=== PATIENT | female | born 1945 | race Caucasian/White ===

== ENCOUNTER 2016-07-13 10:34 | Inpatient (IN) ==
[2016-07-13] MEDS ORDERED: ONDANSETRON 4 MG/2 ML INJECTION IVP ONE (10:57)
[2016-07-13] MEDS ORDERED: NS 1,000 ML IV ONE (10:57)
[2016-07-13] MEDS ORDERED: HYDROMORPHONE 2 MG/ML INJECTION IVP ONE ×2 (10:57→12:03)
[2016-07-13] MEDS: SALINE FLUSH 10ml SYRINGE IVF PRN ×2 (11:16→16:08)
--- NOTE | 2016-07-13 11:54 | CT Scan Report ---
Indication: right flank pain PROCEDURE: CT renal wo con: Encounter: Initial Comparison: None Technique: Axial CT images were performed through the abdomen and pelvis without intravenous contrast. Coronal and sagittal two-dimensional reformats. Automated Exposure Control and Iterative Reconstruction dose reducing techniques were utilized. Findings: The lung bases are clear. The unenhanced contours of the liver show decreased attenuation consistent with fatty infiltration. No contour deforming liver masses. The gallbladder is unremarkable. The spleen, pancreas and adrenal glands are within normal limits. 1 cm higher attenuation lesion in the medial inferior aspect of the right kidney probably representing a small hyperdense cyst. The kidneys appear otherwise normal without evidence of hydronephrosis or stone disease. Small hiatal hernia. There is a small amount of free pelvic fluid. Uterus is unremarkable. No evidence of a bowel obstruction. There is significant inflammation surrounding the appendix which contains an appendicolith at its base. Diameter is difficult to measure given the significant adjacent fat stranding. There is some fluid along the right lateral conal fascia as well. There is no free intraperitoneal air identified. Bone windows show degenerative changes in the spine. Impression: 1. Acute appendicitis with evidence of perforation. Emergent surgical consultation is recommended. 2. Hepatic steatosis. These results were discussed with the emergency room physician Dr. Giraldo at 1148 on July 13, 2016. .
--- NOTE | 2016-07-13 11:56 | XRay Report ---
INDICATION: abdominal pain PROCEDURE: CHEST 2-VIEWS UPRIGHT (PA & LAT) Encounter: Initial COMPARISON: None FINDINGS: The lungs are clear without evidence of focal abnormal airspace opacity. There is no pleural effusion or pneumothorax. The heart size, mediastinal contours and pulmonary vascularity are within normal limits. Degenerative change in the thoracolumbar spine. IMPRESSION: No acute cardiopulmonary disease. .
--- NOTE | 2016-07-13 11:56 | Emergency Department Report ---
Abdominal Pain HPI - General Chief Complaint: Abdominal Pain Stated Complaint: R Flank Pain Time Seen by Provider: 07/13/16 10:57 - History of Present Illness HPI narrative: 70-year-old female presents with abdominal pain which onset this morning. She was doing well yesterday, began a little bit of pain overnight and pain became very severe this morning. At this point when she moves it is 10 out of 10. She did not have any pain with bumps on the way in, or when lying perfectly still. No fever or chills. No abdominal injury or trauma. No one else at home is sick. Pain is right lower quadrant radiating down into pelvis. She was initially seen her primary care provider's office and sent to ED with severe abdominal pain. - Related Data Home Medications Medication Instructions Recorded Confirmed Alendronate [Fosamax] 70 mg PO WEEKLY #0 06/04/09 Aspirin [Aspirin EC] 1 tab PO DAILY #0 06/04/09 Atenolol 1 tab PO BID #0 06/04/09 Lisinopril 5 mg PO HS #0 06/04/09 XYLOTRAN EYE DROPS DAILY #0 06/04/09 hydroCHLOROthiazide 25 mg PO HS #0 06/04/09 [Hydrochlorothiazide] Allergies Allergy/AdvReac Type Severity Reaction Status Date / Time No Known Drug Allergies Allergy Unknown Verified 07/13/16 11:15 Review of Systems All systems: reviewed and negative except as stated Gastrointestinal: Reports: as per HPI PFSH Patient Stated Medical History Hypertension Yes Surgical History: neg Family History: Negative and still negative Smoking status: Never smoker Substance use type: does not use Physical Exam - General General appearance: alert, anxious, in distress - Normal Exams: Head:: Normocephalic without trauma Eyes:: Pupils are PERRLA w/ EOMI, No scleral icterus, irritation, or foreign bodies noted ENMT:: No facial trauma, nasal exudates, pharyngeal erythema, or exudates are noted Chest/Respirations:: Clear all jerez, with good airflow, and symmetry bilaterally Cardiovascular:: Regular rate and rhythm, without murmur or gallop, Pulses 2+ all extremities, capillary refill, <2 seconds all extremities Musculoskeletal:: No tenderness, or deformity noted Integumentary:: No rashes, hives, or bruising noted, hair and nails, without abnormality Neurological:: Patient is alert, and oriented, cranial nerves, motor/sensory/ cerebellar, exams w/o gross deficits, to observation Psychiatric:: Patient exhibits, appropriate attention, emotion and affect - Abdominal Exam Abdominal exam: Present: distention, tenderness, guarding Course Vital Signs Temperature 102.8 F H 07/13/16 10:40 Pulse Rate 84 07/13/16 10:40 Respiratory Rate 28 H 07/13/16 10:40 Blood Pressure 140/67 H 07/13/16 10:40 Pulse Oximetry 93 07/13/16 10:40 Temperature 102.8 F H 07/13/16 10:40 Pulse Rate 66 07/13/16 11:15 Respiratory Rate 28 H 07/13/16 10:40 Blood Pressure 102/55 07/13/16 11:23 Pulse Oximetry 95 07/13/16 11:15 Abdominal Pain - MDM Narrative Medical decision making narrative: Patient given normal saline 1 L IV with 0.5 mg Dilaudid and 4 mg Zofran IV. She had some relief of pain. Temp is elevated at 102.8 labs returned showing normal white count at this time however however CRP is elevated at 90. Lactate 2.0. CT scan shows likely perfect appendix with fluid layering in the pelvis. I spoke with Dr. Macias, who accepted the patient for surgical intervention. She will be given Invanz 1 g IV, 0.5 mg Dilaudid currently. - Lab Data Result diagrams: 07/13/16 11:13 07/13/16 11:13 Lab Results 07/13/16 07/13/16 07/13/16 Range/Units 10:58 11:13 11:13 WBC 8.0 (4.5-11.0) T/MM3 RBC 4.08 (4.00-5.20) M/MM3 Hgb 12.5 (12-16) GM/DL Hct 37.9 (36-46) % MCV 92.9 (80-100) UM3 MCH 30.6 (26-34) UUG MCHC 33.0 (31-37) GM/DL RDW Std Deviation 42.8 (36.9-50.2) FL Plt Count 273 (130-400) T/MM3 MPV 10.2 (9.4-12.4) UM3 Immature Gran % (Auto) Not performed Neut % (Auto) Not performed Lymph % (Auto) Not performed [place] % (Auto) Not performed Eos % (Auto) Not performed Baso % (Auto) Not performed Neut # Not performed Lymph # Not performed [place] # Not performed Baso # Not performed Abs Immat Gran (auto) Not performed Neutrophils % (Manual) 79.0 H (33-66) % Band Neutrophils % 11.0 H (0-6) % Lymphocytes % (Manual) 7.0 L (23-45) % Monocytes % (Manual) 3.0 (0-9.0) % Neutrophils # (Manual) 6.3 (1.8-7.7) T/MM3 Band Neutrophils # 0.9 T/MM3 Lymphocytes # (Manual) 0.6 L (1-4.8) T/MM3 Monocytes # (Manual) 0.2 (0-0.8) T/MM3 RBC Morph Comment Normal Turbidity 20 (0-20) Sodium 137 (134-144) MEQ/L Potassium 4.4 (3.6-5) MEQ/L Chloride 99 (98-107) MEQ/L Carbon Dioxide 25 (22-30) MEQ/L Anion Gap 13 (5-15) MEQ/L BUN 22.0 H (7-17) MG/DL Creatinine 1.1 (0.7-1.2) MG/DL GFR Calculation 49 BUN/Creatinine Ratio 20 (6-26) RATIO Glucose 284 H (65-110) MG/DL Calculated Osmolality 277 (261-280) MOSM/KG Calcium 8.5 (8.4-10.2) MG/DL Total Bilirubin 0.70 (0.20-1.30) MG/DL Icterus Index 2 (0-7) AST 21 (14-36) U/L ALT 37 (9-52) U/L Alkaline Phosphatase 74 (38-126) U/L Troponin I < 0.012 (0-0.12) ng/ml C-Reactive Protein 148.5 H (0-9) MG/L Total Protein 6.5 (6.3-8.2) G/DL Albumin 3.9 (3.5-5.0) G/DL Globulin 2.6 (2.4-3.6) G/DL Albumin/Globulin Ratio 1.5 (1.1-2.2) RATIO Lipase 52 (23-300) U/L Plasma Lactate 2.0 (0.6-2.2) MMOL/L Specimen Hemolysis 15 (0-25) Ur Collection Type Urine, clean catch Urine Color Aarti (YELLOW) Urine Clarity Sl cloudy Urine pH 5.0 (5.0-8.0) Ur Specific [place] >=1.030 H (1.015-1.025) Urine Protein 2+ A (NEGATIVE) Urine Glucose (UA) Negative (NEGATIVE) Urine Ketones Trace A (NEGATIVE) Urine Occult Blood Negative (NEGATIVE) Urine Nitrate Positive A (NEGATIVE) Urine Bilirubin 2+ A (NEGATIVE) Urine Urobilinogen 1.0 (NORMAL) EU/DL Ur Leukocyte Esterase Negative (NEGATIVE) Urine RBC 1-3 (0-3) /HPF Urine WBC 1-3 (0-5) /HPF Ur Squamous Epith Cells 0-5 Urine Bacteria 2+ H (NEGATIVE) Ur Culture Indicated? Cancelled Urinalysis Comment Cancelled Disposition Clinical Impression: Acute appendicitis Disposition: 02 To [facility] Acute Care Condition: Stable Prescriptions: No Action Atenolol 1 tab PO BID #0 Aspirin [Aspirin EC] 1 tab PO DAILY #0 Lisinopril 5 mg PO HS #0 Alendronate [Fosamax] 70 mg PO WEEKLY #0 hydroCHLOROthiazide [Hydrochlorothiazide] 25 mg PO HS #0 XYLOTRAN EYE DROPS DAILY #0 Referrals: Cesar Rae MD [Family Provider] - Time of Disposition: 12:08 - Seen By: physician
[2016-07-13] MEDS ORDERED: ERTAPENEM 1 G in NS 100 ML IV ONE (12:03)
--- NOTE | 2016-07-13 13:12 | General Surg History&Physical ---
- History of Present Illness Chief complaint: RLQ abd pain HPI: Per Dr. Macias [facility] Patient Stated Medical History Hypertension DM Glaucoma Surgical History: . foot surgery. 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) Medications Home Medications Medication Instructions Recorded Confirmed Type Atenolol 50 mg PO BID #0 06/04/09 07/13/16 History hydroCHLOROthiazide 25 mg PO HS #0 06/04/09 07/13/16 History [Hydrochlorothiazide] Combigan Eye Drops 1 drop EACH EYE BID 07/13/16 07/13/16 History Ecotrin 81 mg PO DAILY 07/13/16 07/13/16 History Lisinopril [Prinivil] 20 mg PO HS 07/13/16 07/13/16 History Metformin HCl 500 mg PO WS 07/13/16 07/13/16 History Allergies Allergy/AdvReac Type Severity Reaction Status Date / Time No Known Drug Allergies Allergy Unknown Verified 07/13/16 11:15 Review of Systems 10-point ROS: negative except for HPI and the following: - Eyes/Ears/Nose/Throat Ear Nose Throat: Present: hearing problems - Gastrointestinal Gastrointestinal: Present: other (see HPI) - Endocrine Endocrine: Present: diabetes - Vital Signs Vital Signs: Last Vital Signs Temp 100.5 F H 07/13/16 12:00 Pulse 71 07/13/16 12:40 Resp 28 H 07/13/16 10:40 BP 110/54 07/13/16 12:45 Pulse Ox 91 07/13/16 12:40 - Normal Exam Additional Normal Findings: Laboratory Tests 07/13/16 07/13/16 11:13 11:13 WBC 8.0 Hgb 12.5 Plt Count 273 Sodium 137 Potassium 4.4 BUN 22.0 H Creatinine 1.1 Glucose 284 H Lipase 52 Plasma Lactate 2.0 General Surgery Results - Results Labs: 07/13/16 11:13 07/13/16 11:13 Microbiology: Microbiology 07/13/16 11:12 Peripheral/Iv Start Blood Culture - Preliminary Culture Initiated - Results Pending 07/13/16 11:08 Peripheral/Iv Start Blood Culture - Preliminary Culture Initiated - Results Pending 07/13/16 10:58 Urine, Clean Catch/Voided Urine Culture - Preliminary Culture Initiated - Results Pending Sepsis Assessment - Focused Exam Vital Signs Temp Pulse Resp BP Pulse Ox 07/13/16 12:45 110/54 07/13/16 12:40 71 91 07/13/16 12:35 73 92 07/13/16 12:31 111/55 07/13/16 12:30 79 90 07/13/16 12:25 71 93 07/13/16 12:20 69 88 L 07/13/16 12:15 108/53 07/13/16 12:10 74 93 07/13/16 12:05 70 93 07/13/16 12:00 100.5 F H 119/55 07/13/16 11:55 68 92 07/13/16 11:51 116/59 07/13/16 11:30 102/55 07/13/16 11:25 80 91 07/13/16 11:23 102/55 07/13/16 11:15 66 95 07/13/16 11:00 83 133/60 93 07/13/16 10:40 102.8 F H 84 28 H 140/67 H 93 Hospital Course Summary Disclaimer: The visit summary below is not to be considered part of the above Progress Note.
--- NOTE | 2016-07-13 13:37 | History and Physical ---
FINDINGS Mrs. Montoya is a 70-year-old female I was asked to see today through the emergency room as a result of the patient's history and physical findings of abdominal pain in conjunction with an obtained abnormal CT scan. Upon questioning the patient she informs me that she has been experiencing pain now about the last 6 days. Pain has been located within her right lower quadrant. She has had a component of some fever and chills in association with the pain. Pain is made worse with movement or upon palpation. Pain has become progressively worse to the point that she "cannot now get comfortable." Patient states that she is now having pain whether she "moves are not." The patient did present earlier today to her primary care physician who appropriately sent her to the ER for further evaluation. The patient was sitting somewhat upright in bed and leaning towards her right side. She did appear to be uncomfortable but did not appear to be in acute distress. PAST MEDICAL HISTORY Performed by my nurse practitioner, Remy Castañeda. PAST SURGICAL HISTORY Performed by my nurse practitionerRemy. MEDICATIONS Performed by my nurse practitionerRemy. ALLERGIES Performed by my nurse practitionerRemy. SOCIAL HISTORY Performed by my nurse practitionerRemy. FAMILY HISTORY Performed by my nurse practitionerRemy. REVIEW OF SYSTEMS Performed by my nurse practitionerRemy. PHYSICAL EXAMINATION Mrs. Montoya is a 70-year-old female who, as above, does appear to be uncomfortable but not in acute distress. VITALS: The patient did have an increased temperature of 102.8. Surprisingly, she was not tachycardic with pulse 66. Respiratory rate 28. Blood pressure normotensive at 102/50. HEENT: Normocephalic. Pupils are equal, round and reactive to light and accommodation. NECK: Supple without lymphadenopathy. CHEST: Clear to auscultation bilaterally. HEART: Regular rate and rhythm. Normal S1 and S2 without gallops, murmurs or clicks. ABDOMEN: Palpation within the left upper quadrant, right upper quadrant and left lower quadrant did not elicit severe pain to the patient. Palpation, however, within the right lower quadrant did elicit severe pain to the patient. She had both a component of some voluntary and involuntary guarding with palpation in the right lower quadrant. There was no evidence for rebound tenderness or toshia peritonitis. Did not appreciate any evidence for hepatomegaly or other abnormal masses. EXTREMITIES: Without clubbing, cyanosis, or edema. NEURO: Cranial nerves II-XII grossly intact. Patient is without focal motor or sensory deficits. LABORATORY/RADIOGRAPH EVALUATION The patient had a CBC and, surprisingly, her white count was not markedly elevated at 8.0. She did have a left shift, however, with 11% bands, 79% neutrophils. Hemoglobin is normal at 12.5. CMP was obtained and found ti be essentially within normal limits. CRP was elevated at 148.5. The patient did have a chest x-ray obtained as well as well as a renal CT scan. Chest x-ray did not reveal any acute cardiopulmonary disease. I did review the CT scan personally as well as the dictated report. One can see a phlegmonous like process involving the right cecal region. One can see an appendicolith within the appendix. There was a fair amount of periappendiceal inflammatory changes as stated above. There was no evidence for free air. There was a small amount of some free fluid. ASSESSMENT 70-year-old female with acute appendicitis. PLAN Laparoscopic appendectomy, possible open. I informed the patient that her clinical history, physical findings and radiographic findings are all indicative for appendicitis. I therefore recommend proceeding with surgical intervention. I informed the patient that I felt that she was at a higher risk for conversion to open procedure given the duration of her pain over the last 6- [address] scan there does appear to be a significant amount of pericecal inflammatory changes present suggestive of a phlegmonous-like process involving the pericecal region. I did discuss with the patient and the family member who was present what a laparoscopic appendectomy, possible open entails and its associated risk which include, but are not limited to, bleeding and/or infection. I have recommended the patient receive broad-spectrum antibiotics while in emergency room. She did receive Invanz 1 g IV. Will go ahead and continue with IV fluids and place the patient on the surgical floor. Later this afternoon, will proceed with surgical intervention as above. I do not feel that this is an "emergent" situation for the does not have toshia peritonitis and is hemodynamically stable at this time. Nonetheless, we will proceed in a timely fashion later this afternoon with surgical intervention. ZAKI
[2016-07-13] MEDS ORDERED: MORPHINE SULFATE 4 MG SYRINGE IVP PRN (14:25)
[2016-07-13] MEDS ORDERED: ONDANSETRON 4 MG/2 ML INJECTION IVP PRN (14:25)
[2016-07-13] MEDS: LR 1,000 ML IV SCH ×2 (14:58→18:15)
[2016-07-13] MEDS ORDERED: LR 1,000 ML IV SCH (16:00)
--- NOTE | 2016-07-13 16:13 | Anesthesia Preoperative Report ---
Anesthesia Preoperative Record - Date and Time Date: 07/13/16 Preoperative Diagnosis: Acute Appy Proposed Procedure: Lap Appy NPO Since Date: 07/13/16 NPO Since Time: 08:00 Allergies/Adverse Reactions: Allergies Allergy/AdvReac Type Severity Reaction Status Date / Time No Known Drug Allergies Allergy Unknown Verified 07/13/16 11:15 - Vital Signs Vital Signs: Temp Pulse Resp BP Pulse Ox 98.9 F 70 20 122/60 94 07/13/16 15:50 07/13/16 15:50 07/13/16 15:50 07/13/16 15:50 07/13/16 15:50 Height and Weight: Height 1.55 m Weight 93.7 kg Body Mass Index 39.0 - Medications Inpatient Medications: Current Medications Lactated Ringer's (Lactated Ringers) 1,000 mls @ 125 mls/hr IV .Q8H EULALIA Last Infusion: 07/13/16 15:33 Dose: 0 mls/hr Lactated Ringer's (Lactated Ringers) 1,000 mls @ 50 mls/hr IV .Q20H [facility] Morphine Sulfate (Morphine Sulfate Inj) 1 - 4 mg IVP Q1H PRN PRN Reason: Pain Ondansetron HCl (Zofran) 4 mg IVP Q6H PRN PRN Reason: Nausea &/or vomiting Sodium Chloride (Iv Flush) 10 - 80 ml IVF PRN PRN PRN Reason: Flushing Last Admin: 07/13/16 11:16 Dose: 10 ml Home Medications: Home Medications Medication Instructions Recorded Confirmed Type Atenolol 50 mg PO BID #0 06/04/09 07/13/16 History hydroCHLOROthiazide 25 mg PO HS #0 06/04/09 07/13/16 History [Hydrochlorothiazide] Combigan Eye Drops 1 drop EACH EYE BID 07/13/16 07/13/16 History Ecotrin 81 mg PO DAILY 07/13/16 07/13/16 History Lisinopril [Prinivil] 20 mg PO HS 07/13/16 07/13/16 History Metformin HCl 500 mg PO WS 07/13/16 07/13/16 History Is Patient on Beta Ramesh?: Yes Beta Ramesh: Yes Beta Ramesh Time: 0800 - Medical History Cardiovascular: Reports: Hypertension Renal/Endocrine: Reports: Diabetes Mellitus Type 2 - Surgical History HEENT Surgeries: Reports: Ear Surgery (EYE LID), Oral Surgery (GUM SURGERIES) Reproductive Surgery/Treatment: Reports: Section - Social History Smoking Status: Never smoker Hx Chewing Tobacco Use: No Second Hand Exposure: No Time spent discussing smoking cessation with patient: 3 to 10 minutes Substance Use Type: does not use Alcohol Intake Frequency: does not drink - Pertinent Findings Laboratory: CBC and BMP 07/13/16 11:13 07/13/16 11:13 BMP 07/13/16 11:13 Sodium 137 Potassium 4.4 Chloride 99 Carbon Dioxide 25 BUN 22.0 H Creatinine 1.1 Glucose 284 H Calcium 8.5 Cardiac Enzymes 07/13/16 Range/Units 11:13 Troponin I < 0.012 (0-0.12) ng/ml Liver Function 07/13/16 Range/Units 11:13 Total Bilirubin 0.70 (0.20-1.30) MG/DL AST 21 (14-36) U/L ALT 37 (9-52) U/L Alkaline Phosphatase 74 (38-126) U/L Albumin 3.9 (3.5-5.0) G/DL Urine 07/13/16 Range/Units 10:58 Urine Color Aarti (YELLOW) Urine Clarity Sl cloudy Urine pH 5.0 (5.0-8.0) Ur Specific [place] >=1.030 H (1.015-1.025) Urine Protein 2+ A (NEGATIVE) Urine Glucose (UA) Negative (NEGATIVE) EKG Rhythm: Normal Sinus Rhythm - Physical Exam Respiratory Exam: Present: lungs clear Cardiovascular Exam: Present: regular rate and rhythm - Airway Assessment Mallampati Score: II TMD: 3 Fingerbreadths Neck Extension: fair Overall Assessment: no airway concerns - ASA ASA Score: 3 - Plan Anesthesia: General TIVA - Discussion Discussion: Discussed risks/options/alternatives of anesthesia and questions answered. Patient consents. Nursing pain assessment noted. Present for Discussion: spouse Attestation Statement: Prior to the delivery of any anesthetic medication, I examined the patient, developed the plan, obtained the patient's consent and discussed the risk and benefits of the procedure with the patient/guardian.
[2016-07-13] MEDS ORDERED: BUPIVACAINE 0.25%/EPI 1:200,000 30ml SDV ONE (16:33)
[2016-07-13] MEDS ORDERED: FentaNYL 100 MCG/2 ML INJECTION ONE (16:52)
[2016-07-13] MEDS ORDERED: DESFLURANE 240ml LIQUID IH ONE (17:46)
[2016-07-13] MEDS ORDERED: GLYCOPYRROLATE 0.4 MG/2 ML INJECTION ONE (17:57)
[2016-07-13] MEDS ORDERED: NEOSTIGMINE 10 MG/10 ML INJECTION ONE (17:57)
--- NOTE | 2016-07-13 18:05 | General Surgery Procedure Note ---
Date of Procedure: 07/13/16 Surgeon: Colleen Boiler Operator: Remy Castañeda APRN Postoperative Diagnosis: Acute ruptured appendicitis with abscess and generalized peritonitis Procedure: Procedures Operation Date: 07/13/16 16:30 Actual Procedures p Laparoscopic Appendectomy - Jimmy Macias MD Estimated Blood Loss: See Anesthesia Record.
[2016-07-13] MEDS ORDERED: METOCLOPRAMIDE 10mg/2ml INJECTION IVP PRN ×2 (18:32→19:43)
[2016-07-13] MEDS: ATENOLOL 50 MG TABLET PO SCH (22:46)
[2016-07-13] MEDS: LISINOPRIL 20 MG TABLET PO SCH (22:49)
[2016-07-14] MEDS: KETOROLAC 15 MG/ML INJECTION IVP PRN ×3 (02:05→16:40)
[2016-07-14] MEDS: SALINE FLUSH 10ml SYRINGE IVF PRN (02:07)
[2016-07-14] MEDS: LR 1,000 ML IV SCH ×5 (03:54→20:35)
[2016-07-14] MEDS: METFORMIN 500 MG TABLET PO SCH ×2 (06:30→17:13)
[2016-07-14] MEDS: BRIMONIDINE/TIMOLOL 0.2%-0.5% EYE DROPS 5ml EACH EYE SCH ×3 (06:30→21:42)
--- NOTE | 2016-07-14 07:01 | Anesthesia Postoperative Note ---
- Date and Time Date: 07/14/16 Time: 06:58 - Status Patient Participated in Evaluation: Patient Participated in Person Vital Signs: Temp Pulse Resp BP Pulse Ox 98.6 F 61 18 106/52 93 07/14/16 04:00 07/14/16 04:00 07/14/16 04:00 07/14/16 04:00 07/14/16 04:00 Respiratory Function: Airway Patent (Pt on O2 5L NC. Diminsshed breath sounds. Crackles in bases.), Regular Respirations Cardiovascular Function: Regular Pulse EKG Rhythm: Normal Sinus Rhythm Mental Status: Alert and Oriented Pain Intensity: 0 (Toradol working well) Hydration: IV Infusing Complications During Recover: None Apparent - Follow-Up Instructions Instructions: Per Surgeon
--- NOTE | 2016-07-14 07:13 | General Surgery Progress Note ---
Subjective Patient reports: feels better (states no pain while at rest, rates pain 3-4 with activity.), tolerating liquids well, flatus, fever (t-max 100 at 6pm yesterday, ) Narrative: She remains on 5L O2 to maintain sats in the low 90's. Fluid bolus 500 ml during the night to help with urine output. - Vital Signs Vital Signs: Last Vital Signs Temp 98.6 F 07/14/16 04:00 Pulse 61 07/14/16 04:00 Resp 18 07/14/16 04:00 BP 106/52 07/14/16 04:00 Pulse Ox 93 07/14/16 04:00 - Abnormal Exam Respiratory: other (crackles at bases, remians on 5L O2 at this time, sat94%. CXR a little hazy at the base, worse on the left) Abdominal: obese, hypoactive bowel sounds Additional Abnormal Findings: Urine output adequate, about 20-50/hr during the night. Last hour 28 m and medium jasbir. Laboratory Tests 07/13/16 07/13/16 07/14/16 11:13 11:13 05:18 WBC 8.0 10.3 Hgb 12.5 10.4 L D Neutrophils % (Manual) 79.0 H 77.0 H Band Neutrophils % 11.0 H 12.0 H Lymphocytes % (Manual) 7.0 L 8.0 L Sodium 137 Potassium 4.4 BUN 22.0 H Creatinine 1.1 Glucose 284 H 07/14/16 05:18 WBC Hgb Neutrophils % (Manual) Band Neutrophils % Lymphocytes % (Manual) Sodium 139 Potassium 4.3 BUN 25.0 H Creatinine 1.1 Glucose 187 H 6-7 CXR Comparison: July 13, 2016 Findings: Interval development of bibasilar atelectasis with volume loss in the right middle lobe. Hypoinflation. No pneumothorax. Cardiac silhouette is mildly enlarged. Pulmonary vascularity appears normal. Mediastinal contours are stable allowing for the hypoinflation. Impression: Bilateral lower lobe atelectasis. - Normal Exam Cardiovascular: regular rhythm, regular rate, other (current BP on monitor 136/ 64) Abdominal: appropriately tender (at trocar sites, with some tenders mostly RLQ) Psychiatric: normal affect Assessment and Plan (1) Acute appendicitis with rupture Current Visit: Yes Status: Acute (2) Postoperative hypoxia Current Visit: Yes Status: Acute (3) Hypertension Current Visit: Yes Status: Chronic Qualifiers: Hypertension type: essential hypertension Qualified Code(s): I10 - Essential (primary) hypertension (4) Diabetes mellitus type 2 in obese Current Visit: Yes Status: Chronic Plan: Doing well for extent of peritonitis found yesterday. Afebrile with t-max 100 at 6pm yesterday. VSS this am, SBP low upper 90's to 110 during the night, PO HS antihypertensives held last night. Current BP 136/64 on monitor. With her hypoxia and marginally adequate urine output and some haziness, atelectasis of lung bases on CXR will order Bumex 1 mg and leave Melendez in place for now. Encourage deep breathing and cough. Tolerating clear liquids and has moderate bowel sounds, will advance to full liquid diet, consistent carbs. Continue Invanz daily. Daily labs. WBC up 10.3 today (8.0 yesterday) common to have a bump in WBC after abscess drained/disturbed Anticipate transfer to surgical floor later today or tomorrow. Hospital Course Summary Disclaimer: The visit summary below is not to be considered part of the above Progress Note. 07-13-2016 Admit note: ASSESSMENT 70-year-old female with acute appendicitis. PLAN Laparoscopic appendectomy, possible open. I informed the patient that her clinical history, physical findings and radiographic findings are all indicative for appendicitis. I therefore recommend proceeding with surgical intervention. I informed the patient that I felt that she was at a higher risk for conversion to open procedure given the duration of her pain over the last 6- [address] scan there does appear to be a significant amount of pericecal inflammatory changes present suggestive of a phlegmonous-like process involving the pericecal region. I did discuss with the patient and the family member who was present what a laparoscopic appendectomy, possible open entails and its associated risk which include, but are not limited to, bleeding and/or infection. I have recommended the patient receive broad-spectrum antibiotics while in emergency room. She did receive Invanz 1 g IV. Will go ahead and continue with IV fluids and place the patient on the surgical floor. Later this afternoon, will proceed with surgical intervention as above. I do not feel that this is an "emergent" situation for the does not have toshia peritonitis and is hemodynamically stable at this time. Nonetheless, we will proceed in a timely fashion later this afternoon with surgical intervention. 07-14-2016 Doing well for POD #1 considering the extent of peritonitis found yesterday. Afebrile with t-max 100 at 6pm yesterday. VSS this am, SBP low upper 90's to 110 during the night, PO HS antihypertensives held last night. Current BP 136/64 on monitor. With her hypoxia and marginally adequate urine output and some haziness of lung bases of CXR will order Bumex 1 mg and leave Melendez in place for now Tolerating clear liquids and has moderate bowel sounds, will advance to full liquid diet, consistent carbs. Continue Invanz daily. Daily labs. WBC up 10.3 today (8.0 yesterday) common to have a bump in WBC after abscess drained/disturbed Sepsis Assessment - Evaluation Sepsis screening result: No Definite Risk SIRS Criteria: Bands > or equal to 10% - Focused Exam Vital Signs Temp Pulse Resp BP Pulse Ox 07/14/16 04:00 98.6 F 61 18 106/52 93 07/14/16 00:00 98.5 F 66 20 93/46 92 07/13/16 22:22 76 20 91 07/13/16 22:20 22 91
--- NOTE | 2016-07-14 07:55 | XRay Report ---
Indication: post op crackles, hypoxia PROCEDURE: XR chest 1V: Encounter: Initial Comparison: July 13, 2016 Findings: Interval development of bibasilar atelectasis with volume loss in the right middle lobe. Hypoinflation. No pneumothorax. Cardiac silhouette is mildly enlarged. Pulmonary vascularity appears normal. Mediastinal contours are stable allowing for the hypoinflation. Impression: Bilateral lower lobe atelectasis. .
[2016-07-14] MEDS ORDERED: BUPIVACAINE 0.25%/EPI 1:200,000 30ml SDV SQ ONE (07:57)
[2016-07-14] MEDS: PANTOPRAZOLE 40 MG INJECTION IVP SCH (08:00)
[2016-07-14] MEDS: MORPHINE SULFATE 4 MG SYRINGE IVP PRN ×2 (08:48→12:18)
[2016-07-14] MEDS ORDERED: Pharmacy Consult for Fall Risk XX PRN (11:23)
[2016-07-14] MEDS: ENOXAPARIN 40 MG/0.4 ML INJECTION SQ SCH (11:37)
[2016-07-14] MEDS: ERTAPENEM 1 G in NS 100 ML IV SCH (11:44)
[2016-07-14] MEDS ORDERED: ERTAPENEM 1 G in NS 100 ML IV SCH (12:00)
--- NOTE | 2016-07-14 15:58 | Operative Note ---
DATE OF SERVICE 07/13/2016 SURGEON Jimmy Macias MD PODIATRIST Remy Castañeda APRN PREOPERATIVE DIAGNOSIS Appendicitis. POSTOPERATIVE DIAGNOSIS Ruptured appendicitis with associated phlegmonous mass. PROCEDURE Laparoscopic appendectomy. ANESTHESIA General endotracheal EBL AND FLUIDS Please see chart. BRIEF HISTORY/INDICATIONS Mrs. Montoya is a 70-year-old female who I was asked to see earlier today through our emergency room facility as a result of her history and physical findings of abdominal pain in conjunction with abnormal CT scan revealing evidence for appendicitis. Patient had been experiencing pain over the last six days or so. Upon examination she was found to be exquisitely tender within the right lower quadrant. As a result of above indications, it was recommended to the patient that she undergo surgical intervention. FINDINGS Following establishment of general anesthetic, palpation of her abdomen was undertaken. Upon palpation, one could feel a mass within the right lower quadrant within the anatomic location of the appendix. Upon laparoscopy, one could see a phlegmonous-like process involving the pericecal region. There was small bowel, omentum adherent around the cecum. Once this had been dissected away one could see a ruptured appendix that had been well contained. Fecalith was outside of the lumen of the appendix. The midportion of the appendix had ruptured. There was some toshia pus within the peritoneal cavity as well. The liver was smooth and without nodularities. The remaining small bowel, omentum and peritoneal surfaces were without noted abnormalities. A standard appendectomy was able to be completed without incident. DESCRIPTION OF PROCEDURE After informed consent was obtained, the patient was brought to the operative suite, placed on the table in a supine fashion. Abdomen was then prepped and draped in sterile fashion. Formal time-out was then completed. The patient had a prior midline incision from her umbilicus down towards the pubic symphysis. I therefore elected to place a port in the supraumbilical location. 0.25% Marcaine with epinephrine was injected above the level of the umbilicus. A 2 cm incision was then made through the area of analgesia. Dissection was carried down to the deep subcuticular tissues and underlying fascia. Fascia was then grasped with two Shey clamps and retracted anteriorly. A 1 cm incision was then made between the two Shey clamps. Hemostat was then introduced in the fascial incision and gently spread. A U- stitch was then placed with 0 Vicryl. A 12 mm Apolonia port was then placed in the peritoneal cavity and pneumoperitoneum was established to a patient pressure of 15 mmHg utilizing carbon dioxide. Additional 5 mm port was then placed in the suprapubic region. Additional 12 mm port was also placed within the right upper quadrant under direct visualization. Abdominal cavity was explored via the laparoscope. Findings were noted as above. There was indeed a phlegmonous-like process involving the pericecal region. There were multiple loops of small bowel that were adherent around the cecal region as well as some omentum. With careful blunt dissection utilizing a suction tip catheter, the small bowel was able to be dissected away from the cecal region as well as the omentum. Beneath this phlegmonous-like process that was dissected away, one could now see the appendix. Appendix was quite thickened and contained a perforation within its midportion. There was a fecalith that was outside of the appendix adjacent to this perforation. Utilizing a stone forceps scoop, the fecalith was grasped and removed through the 10/12 mm port within the right upper quadrant. Next the base of the appendix was somewhat retrocecal in nature was difficult to visualize. Therefore I elected to go ahead and mobilize the right colon medially. White line of Toldt from about the mid ascending colon down to the cecal region was incised with scissors. Right colon was then able to be reflected medially bluntly utilizing a suction tip catheter. One could now see the base of the appendix to a greater extent. Fortunately the base of the appendix appeared to be without significant inflammatory changes. Small opening was then created within the mesoappendix adjacent to the base of the appendix. Linear stapler was then placed across the base of the appendix and fired. Vascular reload was then placed within the linear stapler and placed across the mesoappendix and fired. Additionally during the dissection of this phlegmonous-like process, a few Hem-o-Simi clips were placed upon the mesoappendix and the mesoappendix was divided distal to the Hem-o-Simi clip to provide better mobilization of the appendix. Next, the appendix was then placed in a laparoscopic retrieval bag and removed via the supraumbilical port site. Copious irrigation was then performed and all irrigant was suctioned till clear. Toshia purulent material adjacent to the liver and along the right pericolic gutter was irrigated and suctioned until clear. Irrigation was also performed within the pouch of Francisco and all irrigant was suctioned till clear. Next, given the gross contamination within the peritoneal cavity, I elected to place a drain. A 19-Niuean Gamaliel drain was placed through the 12 mm port within the right upper quadrant. The drain was allowed to be placed along the pericolic gutter and the tip of the drain was placed within the pouch of Francisco. Prior areas of dissection were inspected and found to be hemostatic in nature. Both staple lines were visualized and remained to be intact and hemostatic in nature. Attention was then directed towards closure. Ports were removed under direct visualization. Previously placed U-stitch was then secured imbricating the fascia at the supraumbilical port site. All skin incisions were then closed in a subcuticular fashion with 4 -0 Monocryl. Dermabond was placed overlying the supraumbilical incision as well as the suprapubic 5 mm port. The incision within the right upper quadrant was closed with 2-0 Prolene and the drain was secured with a 2-0 Prolene. The patient is in the process of awakening from her anesthetic and will be sent back to the ICU once deemed in stable condition. Additionally, it should be noted that Remy Castañeda APRN, was present throughout the entire case and played a pivotal role in providing assistance and exposure during the course of the procedure. ZAKI
[2016-07-14] MEDS: HYDROCODONE/APAP 5mg/325mg TABLET PO PRN (16:38)
[2016-07-15] MEDS: LR 1,000 ML IV SCH ×5 (00:07→22:41)
[2016-07-15] MEDS: HYDROCODONE/APAP 5mg/325mg TABLET PO PRN ×4 (00:26→21:08)
--- NOTE | 2016-07-15 07:00 | Progress Note ---
DATE 07/14/2016 FINDINGS Patient, this evening, states she is feeling significantly better. Her abdominal pain has improved. < VITALS: Afebrile and normotensive. ABDOMEN: Soft. Minimal incisional tenderness. No evidence for rebound or guarding. ASSESSMENT 70-year-old female status post laparoscopic appendectomy secondary to ruptured appendicitis. Patient doing quite well. PLAN Did review the patient's lab work from today. Her hemoglobin has drifted down slightly to 10.4. Bandemia is still present at 12%. White count is overall stable at 10.3. BMP obtained and found to be without marked abnormalities. BUN slightly elevated at 25.0. Will continue with current care at this time. I have slowly advance diet. Will likely move out to surgical floor tomorrow. I am pleased with the patient's progress. MTDD
[2016-07-15] MEDS ORDERED: ENOXAPARIN 40 MG/0.4 ML INJECTION SQ SCH (09:00)
[2016-07-15] MEDS: BRIMONIDINE/TIMOLOL 0.2%-0.5% EYE DROPS 5ml EACH EYE SCH ×2 (09:14→22:44)
[2016-07-15] MEDS: ENOXAPARIN 40 MG/0.4 ML INJECTION SQ SCH (09:15)
[2016-07-15] MEDS: PANTOPRAZOLE 40 MG INJECTION IVP SCH (09:16)
[2016-07-15] MEDS: KETOROLAC 15 MG/ML INJECTION IVP PRN (09:17)
[2016-07-15] MEDS: ERTAPENEM 1 G in NS 100 ML IV SCH ×2 (12:18→13:54)
--- NOTE | 2016-07-15 12:58 | Progress Note ---
DATE 07/15/2016 FINDINGS The patient was in good spirits this morning. She had eaten a regular breakfast. She denied significant abdominal pain. OBJECTIVE VITALS: Afebrile. Normotensive. Please refer to EMR. ABDOMEN: Soft, nontender. Incisions were clean, dry, and intact. GIRMA drainage is serosanguineous in nature. LABORATORY/RADIOGRAPHIC EVALUATION The patient had a CBC today and her white count is slightly down at 9.0. Bandemia has resolved. BMP was obtained and reviewed. ASSESSMENT 70-year-old female status post laparoscopic appendectomy secondary to ruptured appendicitis. Patient doing quite well. PLAN Transfer to floor. ASHLEY Melendez. Hopefully the patient will be able to be discharged within the next 24-48 hours. ZAKI
[2016-07-15] MEDS: METFORMIN 500 MG TABLET PO SCH (18:42)
[2016-07-15] MEDS: ATENOLOL 50 MG TABLET PO SCH (22:43)
[2016-07-15] MEDS: LISINOPRIL 20 MG TABLET PO SCH (22:44)
[2016-07-16] MEDS: HYDROCODONE/APAP 5mg/325mg TABLET PO PRN ×3 (06:48→20:09)
[2016-07-16] MEDS: LR 1,000 ML IV SCH ×2 (06:49→16:12)
[2016-07-16] MEDS ORDERED: BISACODYL E.C. 5 MG TABLET PO ONE ×2 (07:59→18:13)
[2016-07-16] MEDS ORDERED: LR 1,000 ML IV SCH (08:00)
[2016-07-16] MEDS ORDERED: ERTAPENEM 1 G in NS 100 ML IV SCH (08:00)
[2016-07-16] MEDS: BRIMONIDINE/TIMOLOL 0.2%-0.5% EYE DROPS 5ml EACH EYE SCH ×2 (08:33→21:13)
[2016-07-16] MEDS: POLYETHYL GLYCOL 3350 17gm PACKET PO SCH (08:33)
[2016-07-16] MEDS: PANTOPRAZOLE 40 MG INJECTION IVP SCH (08:33)
[2016-07-16] MEDS: SALINE FLUSH 10ml SYRINGE IVF PRN (08:34)
[2016-07-16] MEDS: ENOXAPARIN 40 MG/0.4 ML INJECTION SQ SCH (08:35)
[2016-07-16] MEDS: ATENOLOL 50 MG TABLET PO SCH ×2 (08:35→21:11)
--- NOTE | 2016-07-16 10:21 | General Surgery Progress Note ---
Subjective Patient reports: feels better, pain is less, tolerating a regular diet, flatus, no bowel movement, afebrile - Vital Signs Vital Signs: Last Vital Signs Temp 97.3 F 07/16/16 04:00 Pulse 84 07/16/16 08:00 Resp 24 07/16/16 08:00 BP 146/86 H 07/16/16 08:00 Pulse Ox 99 07/16/16 08:00 - Abnormal Exam Abdominal: obese - Normal Exam General: no acute distress Respiratory: clear all jerez Abdominal: BS normo active x4, appropriately tender Additional Normal Findings: Laboratory Tests 07/15/16 07/16/16 07/16/16 07:58 04:37 04:37 WBC 9.0 8.2 Hgb 10.0 L 10.4 L Sodium 140 Potassium 4.2 BUN 21.0 H Creatinine 0.9 D Glucose 154 H Assessment and Plan (1) Acute appendicitis with rupture Current Visit: Yes Status: Acute (2) Postoperative hypoxia Current Visit: Yes Status: Acute (3) Hypertension Current Visit: Yes Status: Chronic Qualifiers: Hypertension type: essential hypertension Qualified Code(s): I10 - Essential (primary) hypertension (4) Diabetes mellitus type 2 in obese Current Visit: Yes Status: Chronic Assessment and plan: She is progressing, but still on Oxygen per [place]. Nursing tried to wean her off, but sats dropped. No BM yet, is passing flatus. Will start Miralax daily and Dulcolax PO x1 today. Hope to discharge later today or tomorrow. Hospital Course Summary Disclaimer: The visit summary below is not to be considered part of the above Progress Note. Sepsis Assessment - Evaluation Sepsis screening result: No Definite Risk SIRS Criteria: Bands > or equal to 10% - Focused Exam Vital Signs Temp Pulse Resp BP Pulse Ox 07/16/16 08:00 84 24 146/86 H 99 07/16/16 04:00 97.3 F 69 22 157/84 H 95 07/16/16 00:00 97.7 F 78 28 H 157/71 H 97 Capillary refill: < 2-3 Seconds
[2016-07-16] MEDS: ERTAPENEM 1 G in NS 100 ML IV SCH (12:58)
[2016-07-16] MEDS: METFORMIN 500 MG TABLET PO SCH (17:30)
--- NOTE | 2016-07-16 18:09 | Discharge Summary ---
Discharge Plan - Med Rec/Dispo Referrals/Follow Up: Cesar Rae MD [Family Provider] - (as needed for routine care or general concerns) Jimmy Macias MD [Physician] - 07/21/16 (for drain management, call the office for time of day) Prescriptions: New Hydrocodone/APAP 5/325 [[place] 5/325] 1 - 2 tab PO Q5H PRN #30 PRN Reason: Pain Peg 3350 17 G Packet [Miralax] 17 gm PO DAILY PRN 14 Days PRN Reason: Constipation Continue Atenolol 50 mg PO BID #0 Ecotrin 81 mg PO DAILY Metformin HCl 500 mg PO WS Combigan Eye Drops 1 drop EACH EYE BID hydroCHLOROthiazide [Hydrochlorothiazide] 25 mg PO HS #0 Lisinopril [Prinivil] 20 mg PO HS - Disposition 01 Discharged Home, Self-Care
--- NOTE | 2016-07-16 18:17 | Discharge Summary ---
Discharge Plan - Med Rec/Dispo Referrals/Follow Up: Cesar Rae MD [Family Provider] - (as needed for routine care or general concerns) Jimmy Macias MD [Physician] - 07/21/16 (for drain management, call the office for time of day) Prescriptions: New Hydrocodone/APAP 5/325 [[place] 5/325] 1 - 2 tab PO Q5H PRN #30 PRN Reason: Pain Amoxicillin/Potassium Clav [Augmentin 875-125 Tablet] 1 each PO BID #14 tablet Peg 3350 17 G Packet [Miralax] 17 gm PO DAILY PRN 14 Days PRN Reason: Constipation Continue Atenolol 50 mg PO BID #0 Ecotrin 81 mg PO DAILY Metformin HCl 500 mg PO WS Combigan Eye Drops 1 drop EACH EYE BID hydroCHLOROthiazide [Hydrochlorothiazide] 25 mg PO HS #0 Lisinopril [Prinivil] 20 mg PO HS - Disposition 01 Discharged Home, Self-Care
--- NOTE | 2016-07-16 18:23 | Discharge Summary ---
Discharge Plan - Med Rec/Dispo Referrals/Follow Up: Cesar Rae MD [Family Provider] - (as needed for routine care or general concerns) Jimmy Macias MD [Physician] - 07/21/16 (for drain management, call the office for time of day) Prescriptions: New Hydrocodone/APAP 5/325 [[place] 5/325] 1 - 2 tab PO Q5H PRN #30 PRN Reason: Pain Amoxicillin/Potassium Clav [Augmentin 875-125 Tablet] 1 each PO BID #14 tablet Peg 3350 17 G Packet [Miralax] 17 gm PO DAILY PRN 14 Days PRN Reason: Constipation Continue Atenolol 50 mg PO BID #0 Ecotrin 81 mg PO DAILY Metformin HCl 500 mg PO WS Combigan Eye Drops 1 drop EACH EYE BID hydroCHLOROthiazide [Hydrochlorothiazide] 25 mg PO HS #0 Lisinopril [Prinivil] 20 mg PO HS - Disposition 01 Discharged Home, Self-Care
--- NOTE | 2016-07-16 18:39 | Progress Note ---
DATE OF SERVICE 07/16/2016 FINDINGS Mrs. Montoya this evening was in good spirits. She denied abdominal pain or any element nausea or vomiting. PHYSICAL EXAM VITAL SIGNS: Afebrile, normotensive. Please refer to EMR. ABDOMEN: Soft. Minimal incisional tenderness. LABORATORY/RADIOGRAPHIC EVALUATION The patient had a CBC today that was unremarkable. White count was 8.2. Hemoglobin is 10.4. Bandemia has resolved. Patient still has 80% neutrophils. BMP was without marked abnormalities. ASSESSMENT 70-year-old female status post laparoscopic appendectomy secondary to ruptured appendicitis. Patient currently doing well. PLAN I do believe the patient could likely be discharged this evening or tomorrow evening. I have discussed the above findings with the patient. The patient will need additional oral antibiotics upon discharge. Will see the patient in the clinic in followup. I am pleased with the patient's progress at this time. ZAKI
[2016-07-16] MEDS: LISINOPRIL 20 MG TABLET PO SCH (21:12)
[2016-07-17] MEDS: HYDROCODONE/APAP 5mg/325mg TABLET PO PRN ×2 (05:00→21:34)
[2016-07-17] MEDS: ENOXAPARIN 40 MG/0.4 ML INJECTION SQ SCH (08:50)
[2016-07-17] MEDS: POLYETHYL GLYCOL 3350 17gm PACKET PO SCH (08:50)
[2016-07-17] MEDS: ATENOLOL 50 MG TABLET PO SCH ×2 (08:50→21:34)
[2016-07-17] MEDS: BRIMONIDINE/TIMOLOL 0.2%-0.5% EYE DROPS 5ml EACH EYE SCH ×2 (08:50→21:33)
[2016-07-17] MEDS: PANTOPRAZOLE 40 MG INJECTION IVP SCH (08:50)
[2016-07-17] MEDS: ERTAPENEM 1 G in NS 100 ML IV SCH (12:01)
[2016-07-17] MEDS: NS FLUSH BAG 500ml IV PRN (12:01)
[2016-07-17] MEDS ORDERED: FUROSEMIDE 40 MG/4 ML INJECTION IVP ONE (12:36)
--- NOTE | 2016-07-17 12:47 | Consult Note ---
Addendum entered and electronically signed by Hermila Granados APRN 07/17/16 13:07 : Please note that a complete ROS was conducted, and is found to be otherwise negative. Original Note: <Hermila Granados - Last Filed: 07/17/16 12:38> Consult Information - Data of Consult Patient: new to practice Consult date: 07/17/16 Requesting Physician: Jimmy Macias MD Primary Care Provider: Ceasr Rae MD Family Provider: Cesar Rae MD - Consult Narrative Reason for consult: Acute hypoxemia requiring oxygen History of present illness: Jessica is a very pleasant 70 yo WF who was admitted on 07/13/16 due to c/o RLQ pain , fairly severe, for 6-7 days prior to admission. She did finally see her PCP, who recommended further evaluation. She underwent imaging to R/O kidney stone, and in the process, was found to have perforated appendicitis. She was taken to surgery the day of admission for further surgical intervention. She has done fairly well post-operatively, but has required oxygen. She was actually to be dismissed to home as she was doing well. However, upon ambulatory assessment, she was found to have O2 saturations as low as 74%. She does maintain low normal saturations of 91% when at rest. Jessica is alert and cooperative during exam. Reports that she is mildly SOA with activity. No chest pain. Mild, non-productive cough. No prior history of DVT or PE. She did have varicose veins that bled spontaneously and required surgical intervention. She does not have unilateral swelling or pain in legs. She denies history of CAD or CHF. Known HTN, DM2. Denies history of MARY- does not use O2 or CPAP at home. Denies snoring; she is recently since last December, so is unable to relate if others feel that she snores. She does have some daytime somnolence at times, which she relates to her Atenolol. Review of Systems - Constitutional Constitutional: Present: as per HPI, daytime sleepiness. Absent: fever(s), headache(s), lethargy, night sweats - Cardiovascular Cardiovascular: Present: dyspnea on exertion, edema. Absent: chest pain, syncope, orthopnea, heart murmur Rhythm: Present: regular rhythm - Respiratory Respiratory: Present: cough, dyspnea on exertion. Absent: dyspnea, hemoptysis, pain on inspiration, chest congestion - Gastrointestinal Gastrointestinal: Present: abdominal pain, change in stool character - Hematologic/Lymphatic Hematologic/Lymphatic Comments: Denies prior hx of DVT or PE. PFSH HTN DM2 Glaucoma Varicose veins with spontaneous bleeding Surgical History: . foot surgery. orthodontic gum surgery. Varicose vein stripping Family History: HTN; DM2; Stroke; CAD; Ruptured diverticulitis with ostomy (mom) - Social History Smoking status: Never smoker Substance use type: does not use Alcohol intake: never Household members: none (Recently 12/2015) service: No Current occupational status: retired Does patient use chewing tobacco?: No Current residence: Apartment/Private Home Medications Home Medications Medication Instructions Recorded Confirmed Type Atenolol 50 mg PO BID #0 06/04/09 07/13/16 History hydroCHLOROthiazide 25 mg PO HS #0 06/04/09 07/13/16 History [Hydrochlorothiazide] Combigan Eye Drops 1 drop EACH EYE BID 07/13/16 07/13/16 History Ecotrin 81 mg PO DAILY 07/13/16 07/13/16 History Lisinopril [Prinivil] 20 mg PO HS 07/13/16 07/13/16 History Metformin HCl 500 mg PO WS 07/13/16 07/13/16 History Allergies Allergy/AdvReac Type Severity Reaction Status Date / Time No Known Drug Allergies Allergy Unknown Verified 07/13/16 11:15 Exam Vital Signs: Temp Pulse Resp BP Pulse Ox 96.9 F 65 20 146/71 H 91 07/17/16 08:00 07/17/16 09:41 07/17/16 09:41 07/17/16 09:41 07/17/16 11:25 Height: 1.55 m Weight: 102 kg Body Mass Index: 39.0 - Constitutional Present: no acute distress, well nourished, obese - Routine HEENT Exam Head: Present: normocephalic, atraumatic Eye: Present: EOMI, PERRL ENT: Present: mucous membranes moist - Routine Neck Exam Present: supple, full ROM. Absent: JVD, tenderness - Routine Respiratory Exam Present: decreased breath sounds, wheezes, crackles (Faint scattered wheezes and fine crackles throughout. DIminished in bases. Not SOA at rest. ). Absent: accessory muscle use - Routine Cardiovascular Exam Present: RRR, S1, S2. Absent: murmur, JVD - Routine Abdominal Exam Present: soft, tenderness, distended (Mild, expected post op. BS are present. ) - Routine Extremities Exam Present: edema (2+ LE edema). Absent: Suad's sign (No unilateral edema or pain ) - Routine Skin Exam Present: intact, dry, warm - Routine Neurological Exam Present: alert, oriented X3, CN II-XII intact - Routine Psychiatric Exam Present: normal affect, normal thought process Results - Labs CBC & Chem 7: 07/16/16 04:37 07/16/16 04:37 - Impressions CXR- Impression: Bilateral lower lobe atelectasis. . CT Impression: 1. Acute appendicitis with evidence of perforation. Emergent surgical consultation is recommended. 2. Hepatic steatosis. These results were discussed with the emergency room physician Dr. Giraldo at 1148 on July 13, 2016. . Assessment and Plan (1) Acute appendicitis with rupture Current visit: Yes Status: Acute (2) Postoperative hypoxia Current visit: Yes Status: Acute (3) Hypertension Current visit: Yes Status: Chronic (4) Diabetes mellitus type 2 in obese Current visit: Yes Status: Chronic (5) Glaucoma Current visit: Yes Status: Acute (6) Fluid overload Current visit: Yes Status: Acute DVT Prophylaxis: Lovenox GI Prophylaxis: Protonix Resuscitation Status: Full Code Assessment and Plan: 07/17/16 S/P perforated appendix s/p surgical repair- per attending. *Acute hypoxemic respiratory failure- Suspect due to fluid overload. Her weight is up approx 5 kg post op due to necessary fluid resuscitation post-op. Will give IV Lasix x 1 now with KCL. DC HCTZ, change to daily Lasix. Continue O2. She may have an element of Diastolic heart failure- consider outpatient echo. Also suspect underlying sleep apnea may be an issue. Will check overnoc oximetry. Would benefit from outpatient sleep apnea assessment. Get CXR. If no improvement with diuresis, we could consider CTA, but she is overall well appearing. Wells Criteria score (PE) 1.5 = Low risk. *DM2- Back on Metformin. BG fairly well controlled. *HTN- I am going to stop the HCTZ so we can diurese with Lasix. She has been taking the HCTZ at bedtime- might do better with AM diuresis. She does endorse some fatigue with atenolol- monitor. Chart, documentation, imaging and labs have been reviewed by this provider during this consultation. Thank you for the consult- we will follow with you. Hospital Course Summary Disclaimer: The visit summary below is not to be considered part of the above Progress Note. Sepsis Assessment - Evaluation Sepsis screening result: No Definite Risk SIRS Criteria: Bands > or equal to 10% - Focused Exam Vital Signs Temp Pulse Resp BP Pulse Ox 07/17/16 11:25 91 07/17/16 09:53 94 07/17/16 09:45 96 07/17/16 09:41 65 20 146/71 H 97 07/17/16 08:00 96.9 F 66 18 183/76 H 96 07/17/16 05:22 151/82 H 07/17/16 04:55 98.1 F 71 18 182/44 H 95 Capillary refill: < 2-3 Seconds <Suyapa Suarez - Last Filed: 07/17/16 16:10> Consult Information - Data of Consult Requesting Physician: Jimmy Macias MD Primary Care Provider: Cesar Rae MD Family Provider: Cesar Rae MD Exam Vital Signs: Temp Pulse Resp BP Pulse Ox 96.9 F 65 20 146/71 H 93 07/17/16 08:00 07/17/16 09:41 07/17/16 09:41 07/17/16 09:41 07/17/16 13:20 Height: 1.55 m Weight: 102 kg Results - Labs CBC & Chem 7: 07/16/16 04:37 07/16/16 04:37 Assessment and Plan (1) Hypertension Current visit: Yes Status: Chronic (2) Diabetes mellitus type 2 in obese Current visit: Yes Status: Chronic (3) Postoperative hypoxia Current visit: Yes Status: Acute (4) Acute appendicitis with rupture Current visit: Yes Status: Acute (5) Glaucoma Current visit: Yes Status: Acute (6) Fluid overload Current visit: Yes Status: Acute Assessment and Plan: 07/17/2016-I reviewed this chart, the patient history, and the SEARCH MANAGER's/PA's documented findings as above. We discussed and formulated the assessment and plan as above with the additions below.-Dr. Suarez I saw the patient this afternoon accompanied by her son. She denies feeling short of breath. She denies any chest pains or palpitations. She denies any lightheadedness. She has been eating and drinking well. She had a normal large bowel movement today. She denies any difficulty urinating. She was seen earlier today by my nurse practitioner and there was concern for fluid overload causing some of her hypoxia. Chest x-ray on 07/14/2016 shows lower lobe atelectasis. Chest x-ray today shows questionable atelectasis as well as some fluid in the fissure. She was given IV Lasix earlier today and has urinated large amounts multiple times since then. On exam she is alert and oriented 3 and in no acute distress. HEENT reveals sclerae to be anicteric and oropharynx is moist. Neck is supple. There is no JVD. Chest is clear to auscultation without wheezes or rhonchi. There is decreased breath sounds in the bases. Cardiovascular reveals a regular rate and rhythm without murmur. Abdomen is soft with positive bowel sounds. Extremities reveal 1-2+ edema in the pretibial area and +1 edema in the feet. Patient is uncertain if her edema is worse than normal. Weight is up approximately 8 kg since admission Her hypoxia has been fairly constant during this hospitalization postoperatively. Is likely accommodation of atelectasis and fluid overload. Agree with diuresis. We'll check a basic metabolic profile now and consider another dose of IV Lasix later today. The patient was encouraged to continue incentive spirometer 10 times an hour and continue to use acapella. Will continue to follow along with you. Hospital Course Summary Disclaimer: The visit summary below is not to be considered part of the above Progress Note. Sepsis Assessment - Focused Exam Vital Signs Temp Pulse Resp BP Pulse Ox 07/17/16 13:20 93 07/17/16 13:19 85 L 07/17/16 11:25 91 07/17/16 09:53 94 07/17/16 09:45 96 07/17/16 09:41 65 20 146/71 H 97 07/17/16 08:00 96.9 F 66 18 183/76 H 96 07/17/16 05:22 151/82 H 07/17/16 04:55 98.1 F 71 18 182/44 H 95
--- NOTE | 2016-07-17 13:32 | Progress Note ---
DATE OF SERVICE 07/17/2016 FINDINGS Mrs. Montoya this morning did not appear to be in acute stress. Nursing informed me, however, that when she was up and about that her oxygen saturations did decrease into the mid 70s. Upon questioning the patient she denies any element of abdominal pain. PHYSICAL EXAM VITAL SIGNS: Afebrile, normotensive. Please refer to EMR. CHEST: Clear to auscultation bilaterally. HEART: Regular rate and rhythm. ABDOMEN: Soft, nontender. GIRMA drainage is fairly minimal and fairly clear in nature. ASSESSMENT 70-year-old female status post laparoscopic appendectomy secondary to ruptured appendicitis. Patient with component of hypoxia postoperatively. PLAN Overall pleased with the patient's surgical appearance. Will go ahead and DC GIRMA drain today. I am a little concerned with the degree of hypoxia that was noted after exertion. Will go ahead and consult hospitalist system for further evaluation of her hypoxia. Patient will likely get CTA to rule out PE. Perhaps she will be slightly diuresed. Will hold discharge at this time until deemed medically stable for discharge in regards to her hypoxia. ZAKI
[2016-07-17] MEDS: METFORMIN 500 MG TABLET PO SCH (17:15)
[2016-07-17] MEDS: LISINOPRIL 20 MG TABLET PO SCH (21:33)
[2016-07-17] MEDS: SALINE FLUSH 10ml SYRINGE IVF PRN (21:33)
[2016-07-18] MEDS: PANTOPRAZOLE 40 MG INJECTION IVP SCH (09:16)
[2016-07-18] MEDS: BRIMONIDINE/TIMOLOL 0.2%-0.5% EYE DROPS 5ml EACH EYE SCH ×2 (09:16→21:23)
[2016-07-18] MEDS: ENOXAPARIN 40 MG/0.4 ML INJECTION SQ SCH (09:17)
[2016-07-18] MEDS: POLYETHYL GLYCOL 3350 17gm PACKET PO SCH (09:17)
[2016-07-18] MEDS: ATENOLOL 50 MG TABLET PO SCH ×2 (09:17→21:22)
[2016-07-18] MEDS: FUROSEMIDE 40 MG TABLET PO SCH (09:17)
[2016-07-18] MEDS: ERTAPENEM 1 G in NS 100 ML IV SCH (12:15)
[2016-07-18] MEDS: NS FLUSH BAG 500ml IV PRN (12:15)
--- NOTE | 2016-07-18 13:36 | Progress Note ---
DATE OF SERVICE 07/18/2016 FINDINGS The patient is without complaints today. States that she does not feel as short of breath today. Patient states that the nursing staff had informed her that her "oxygen level did good last night." EXAM VITAL SIGNS: Afebrile, normotensive. O2 sat was 92% on room air. Reviewing her O2 sat it does appear that it has been above 90% throughout the evening. LABORATORY/RADIOGRAPHIC EVALUATION Repeat lab was obtained today consisting of CBC and BMP. No marked abnormalities were noted. Chloride slightly low at 97. ASSESSMENT 81-year-old female status post laparoscopic appendectomy secondary to ruptured appendicitis. Patient with development of postoperative hypoxia most likely secondary to atelectasis and a component of some volume overload. PLAN I appreciate the hospitalists' help in regards to her hypoxia. The patient remains stable from a general surgical standpoint. Will continue current care at this time. Discussed the case with the hospitalist in regards to possible discharge. The patient will likely need home O2 and I am not for sure that this has been able to be arranged this weekend. Patient likely will be discharged tomorrow. ZAKI
--- NOTE | 2016-07-18 15:25 | Progress Note ---
<Jessica Walton D - Last Filed: 07/18/16 15:21> Subjective: Jessica is doing better today. She desaturated with ambulation this morning but recovered quickly. She denies any dyspnea on exertion, and is surprised to see her sats drop with activity. She feels like her leg swelling is better today compared to yesterday. She is agreeable to using oxygen at home if indicated. She denies any abdominal pain - her last dose of pain pill was around 2100 last night. She would like to avoid taking any more pain pills if possible. She was constipated but that has resolved. She denies any nausea or vomiting. Discharge plans are to go home - she lives with her son (but he's not available 30/08). Objective Vital signs: Temp Pulse Resp BP Pulse Ox 97.5 F 76 20 148/93 H 86 L 07/18/16 11:14 07/18/16 11:14 07/18/16 11:14 07/18/16 11:14 07/18/16 15:11 Weight: 97.5 kg - Constitutional Present: no acute distress, well nourished, obese - Routine HEENT Exam ENT: Present: mucous membranes moist, oropharynx clear - Routine Respiratory Exam Present: rales (b/l, L>R) - Routine Cardiovascular Exam Present: S1, S2 - Routine Abdominal Exam Present: normoactive bowel sounds, distended (mild distention as expected postop ) - Routine Extremities Exam Present: edema (1+ BLE), non tender, pulses intact - Routine Musculoskeletal Exam Musculoskeletal: moving extremities well - Routine Skin Exam Present: intact, dry, warm - Routine Neurological Exam Present: alert, oriented X3 - Routine Psychiatric Exam Present: normal affect, normal thought process Results - Labs CBC & Chem 7: 07/18/16 04:13 07/18/16 04:13 Assessment and Plan (1) Postoperative hypoxia Current visit: Yes Status: Acute (2) Hypertension Current visit: Yes Status: Chronic (3) Diabetes mellitus type 2 in obese Current visit: Yes Status: Chronic (4) Acute appendicitis with rupture Current visit: Yes Status: Acute (5) Glaucoma Current visit: Yes Status: Acute (6) Fluid overload Current visit: Yes Status: Acute (7) Normocytic anemia Current visit: Yes Status: Acute Assessment and Plan: Postop hypoxia -ambulatory oximetry at 1020 this am showed sats dropping to 85%; at this time 1L of oxygen was recommended; repeated this afternoon with sats dropping to 84% during ambulation and then recovering to >90% after 1 minute of rest -nocturnal oximetry reviewed - she stayed >90% according to documentation -s/p diuresis with IV Lasix -Negative fluid balance and weight is down 4.5 mg from yesterday -continue IS, acapella Normocytic anemia -mild at 10.7 -may have appeared more significant given fluid positive status -holding steady DC planning -likely will need to re-assess ambulatory oximetry tomorrow Discussed with Dr. Suarez and Jessica's nurse. Sepsis Assessment - Evaluation Sepsis screening result: No Definite Risk SIRS Criteria: Bands > or equal to 10% - Focused Exam Vital Signs Temp Pulse Resp BP Pulse Ox 07/18/16 15:11 86 L 07/18/16 11:14 97.5 F 76 20 148/93 H 96 07/18/16 10:20 71 95 07/18/16 07:25 98.3 F 66 20 148/80 H 92 07/18/16 04:00 98.5 F 64 18 184/90 H 91 Respiratory exam: Present: decreased breath sounds, wheezes, crackles (Faint scattered wheezes and fine crackles throughout. DIminished in bases. Not SOA at rest. ). Absent: accessory muscle use Cardiovascular exam: Present: RRR, S1, S2. Absent: murmur, JVD Capillary refill: < 2-3 Seconds Hospital Course Summary Disclaimer: The visit summary below is not to be considered part of the above Progress Note. Hospital Course: 07/17/2016-I reviewed this chart, the patient history, and the PROGRAM PLANNER's/PA's documented findings as above. We discussed and formulated the assessment and plan as above with the additions below.-Dr. Suarez I saw the patient this afternoon accompanied by her son. She denies feeling short of breath. She denies any chest pains or palpitations. She denies any lightheadedness. She has been eating and drinking well. She had a normal large bowel movement today. She denies any difficulty urinating. She was seen earlier today by my nurse practitioner and there was concern for fluid overload causing some of her hypoxia. Chest x-ray on 07/14/2016 shows lower lobe atelectasis. Chest x-ray today shows questionable atelectasis as well as some fluid in the fissure. She was given IV Lasix earlier today and has urinated large amounts multiple times since then. On exam she is alert and oriented 3 and in no acute distress. HEENT reveals sclerae to be anicteric and oropharynx is moist. Neck is supple. There is no JVD. Chest is clear to auscultation without wheezes or rhonchi. There is decreased breath sounds in the bases. Cardiovascular reveals a regular rate and rhythm without murmur. Abdomen is soft with positive bowel sounds. Extremities reveal 1-2+ edema in the pretibial area and +1 edema in the feet. Patient is uncertain if her edema is worse than normal. Weight is up approximately 8 kg since admission Her hypoxia has been fairly constant during this hospitalization postoperatively. Is likely accommodation of atelectasis and fluid overload. Agree with diuresis. We'll check a basic metabolic profile now and consider another dose of IV Lasix later today. The patient was encouraged to continue incentive spirometer 07/18/16 15:35 Postop hypoxia -ambulatory oximetry at 1020 this am showed sats dropping to 85%; at this time 1L of oxygen was recommended; repeated this afternoon with sats dropping to 84% during ambulation and then recovering to >90% after 1 minute of rest -nocturnal oximetry reviewed - she stayed >90% according to documentation -s/p diuresis with IV Lasix -Negative fluid balance and weight is down 4.5 mg from yesterday -continue IS, acapella Normocytic anemia -mild at 10.7 -may have appeared more significant given fluid positive status -holding steady DC planning -likely will need to re-assess ambulatory oximetry tomorrow <Suyapa Suarez - Last Filed: 07/18/16 17:35> Objective Vital signs: Temp Pulse Resp BP Pulse Ox 98.2 F 78 16 149/84 H 93 07/18/16 15:26 07/18/16 15:26 07/18/16 15:26 07/18/16 15:26 07/18/16 15:26 Results - Labs CBC & Chem 7: 07/18/16 04:13 07/18/16 04:13 Assessment and Plan (1) Hypertension Current visit: Yes Status: Chronic (2) Diabetes mellitus type 2 in obese Current visit: Yes Status: Chronic (3) Postoperative hypoxia Current visit: Yes Status: Acute (4) Acute appendicitis with rupture Current visit: Yes Status: Acute (5) Glaucoma Current visit: Yes Status: Acute (6) Fluid overload Current visit: Yes Status: Acute (7) Normocytic anemia Current visit: Yes Status: Acute Assessment and Plan: 07/18/2016-I reviewed this chart, the patient history, and the PROGRAM PLANNER's/PA's documented findings as above. We discussed and formulated the assessment and plan as above with the additions below.-Dr. Suarez Patient states that she is feeling okay today. She denies shortness of breath at rest or with ambulation. She is off of oxygen during the day at rest. She did require oxygen last night. Oxygen saturations dropped to 84% on room air with activity. She still has 2+ lower extremity edema. Chest is clear to auscultation. Cardiovascular reveals a regular rate and rhythm. Abdomen is soft and nontender. Acute hypoxic respiratory failure is likely secondary to combination of fluid overload and atelectasis. Continue diuresis. Continue aggressive use of incentive spirometer. Probable discharge tomorrow, hopefully will not need oxygen. Discussed with patient, her son, and her nurse. Sepsis Assessment - Focused Exam Vital Signs Temp Pulse Resp BP Pulse Ox 07/18/16 15:26 98.2 F 78 16 149/84 H 93 07/18/16 15:11 86 L 07/18/16 11:14 97.5 F 76 20 148/93 H 96 07/18/16 10:20 71 95 07/18/16 07:25 98.3 F 66 20 148/80 H 92 Hospital Course Summary Disclaimer: The visit summary below is not to be considered part of the above Progress Note.
[2016-07-18] MEDS: METFORMIN 500 MG TABLET PO SCH (17:52)
[2016-07-18] MEDS: LISINOPRIL 20 MG TABLET PO SCH (21:22)
[2016-07-19] MEDS ORDERED: PANTOPRAZOLE 40 MG TABLET PO SCH (06:30)
[2016-07-19] MEDS: POLYETHYL GLYCOL 3350 17gm PACKET PO SCH (09:14)
[2016-07-19] MEDS: BRIMONIDINE/TIMOLOL 0.2%-0.5% EYE DROPS 5ml EACH EYE SCH (09:15)
[2016-07-19] MEDS: ENOXAPARIN 40 MG/0.4 ML INJECTION SQ SCH (09:16)
[2016-07-19] MEDS: ATENOLOL 50 MG TABLET PO SCH (09:16)
[2016-07-19] MEDS: FUROSEMIDE 40 MG TABLET PO SCH (09:16)
--- NOTE | 2016-07-19 09:51 | XRay Report ---
Indication: hypoxia Procedure: XR chest 2V: Encounter: Subsequent Comparison: 07/14/2016, 07/13/2016 Technique: PA and lateral radiographs of the chest were obtained. Findings: Lungs and airways: Persistent low lung volumes with associated bibasilar atelectasis. No other focal/confluent airspace consolidation. Normal pulmonary vasculature. Pleura: No pleural effusion or pneumothorax. Heart and mediastinum: The cardiomediastinal silhouette and great vessels appear unchanged with redemonstration of cardiomegaly and aortic atherosclerosis. Osseous structures and soft tissues: No acute osseous abnormality is seen. Degenerative disc disease of the thoracic spine. Impression: Persistent low lung volumes with associated basilar atelectasis. No other focal/confluent airspace consolidation to suggest pneumonia radiographically. .
[2016-07-19] MEDS ORDERED: FUROSEMIDE 40 MG TABLET PO ONE (13:00)
--- NOTE | 2016-07-19 13:16 | Progress Note ---
Subjective: Patient states she's feeling well today. She denies any shortness of breath with ambulation or at rest. She continues to have some lower extremity edema. She denies any chest pains or palpitations. She is eating and drinking well. She denies any difficulties with pain. She is urinating quite a bit with the diuretic. Objective Vital signs: Temp Pulse Resp BP Pulse Ox 98.1 F 76 18 139/82 97 07/19/16 12:23 07/19/16 12:23 07/19/16 12:23 07/19/16 12:23 07/19/16 12:23 Weight: 97.5 kg Comments: I&O over the past 48 hours is -5.5 L GEN-alert, oriented, no acute distress CV-regular rate and rhythm without murmur CHEST-clear to auscultation bilaterally ABD-soft, nontender with positive bowel sounds -no Melendez EXT-2+ lower extremity edema NEURO-no focal deficits SKIN-warm and dry and without rashes - Constitutional Present: no acute distress, well nourished, obese Results - Labs CBC & Chem 7: 07/19/16 05:02 07/19/16 05:02 Assessment and Plan (1) Hypertension Current visit: Yes Status: Chronic (2) Diabetes mellitus type 2 in obese Current visit: Yes Status: Chronic (3) Postoperative hypoxia Current visit: Yes Status: Acute (4) Acute appendicitis with rupture Current visit: Yes Status: Acute (5) Glaucoma Current visit: Yes Status: Acute (6) Fluid overload Current visit: Yes Status: Acute (7) Normocytic anemia Current visit: Yes Status: Acute Assessment and Plan: 07/19/2016 Acute hypoxic respiratory failure likely secondary to accommodation of fluid overload and atelectasis-overall is much improved today. She has urinated over 8 L and is -5.5 L on ins and outs over the past 48 hours. Oxygen saturation on room air with ambulation today remained in the 90s. She appears stable for discharge to home from a medical standpoint. Lower extremity edema-we'll give another dose of Lasix today. This may resolve without further treatment at home. I have asked her to follow-up with Dr. Rae in 1 week to see if Lower extremity edema has improved. She will keep her legs elevated while resting to help with edema. Diabetes is stable Normocytic anemia is improving Sepsis Assessment - Evaluation Sepsis screening result: No Definite Risk SIRS Criteria: Bands > or equal to 10% - Focused Exam Vital Signs Temp Pulse Resp BP Pulse Ox 07/19/16 12:23 98.1 F 76 18 139/82 97 07/19/16 09:30 77 07/19/16 08:55 98.3 F 68 20 139/71 97 07/19/16 04:06 97.6 F 64 16 164/88 H 94 Respiratory exam: Present: decreased breath sounds, wheezes, crackles (Faint scattered wheezes and fine crackles throughout. DIminished in bases. Not SOA at rest. ). Absent: accessory muscle use Cardiovascular exam: Present: RRR, S1, S2. Absent: murmur, JVD Capillary refill: < 2-3 Seconds Hospital Course Summary Disclaimer: The visit summary below is not to be considered part of the above Progress Note. Hospital Course: 07/17/2016-I reviewed this chart, the patient history, and the [facility] ST[employer]AGE ARCHITECT's/PA's documented findings as above. We discussed and formulated the assessment and plan as above with the additions below.-Dr. Suarez I saw the patient this afternoon accompanied by her son. She denies feeling short of breath. She denies any chest pains or palpitations. She denies any lightheadedness. She has been eating and drinking well. She had a normal large bowel movement today. She denies any difficulty urinating. She was seen earlier today by my nurse practitioner and there was concern for fluid overload causing some of her hypoxia. Chest x-ray on 07/14/2016 shows lower lobe atelectasis. Chest x-ray today shows questionable atelectasis as well as some fluid in the fissure. She was given IV Lasix earlier today and has urinated large amounts multiple times since then. On exam she is alert and oriented 3 and in no acute distress. HEENT reveals sclerae to be anicteric and oropharynx is moist. Neck is supple. There is no JVD. Chest is clear to auscultation without wheezes or rhonchi. There is decreased breath sounds in the bases. Cardiovascular reveals a regular rate and rhythm without murmur. Abdomen is soft with positive bowel sounds. Extremities reveal 1-2+ edema in the pretibial area and +1 edema in the feet. Patient is uncertain if her edema is worse than normal. Weight is up approximately 8 kg since admission Her hypoxia has been fairly constant during this hospitalization postoperatively. Is likely accommodation of atelectasis and fluid overload. Agree with diuresis. We'll check a basic metabolic profile now and consider another dose of IV Lasix later today. The patient was encouraged to continue incentive spirometer 07/18/16 15:35 Postop hypoxia -ambulatory oximetry at 1020 this am showed sats dropping to 85%; at this time 1L of oxygen was recommended; repeated this afternoon with sats dropping to 84% during ambulation and then recovering to >90% after 1 minute of rest -nocturnal oximetry reviewed - she stayed >90% according to documentation -s/p diuresis with IV Lasix -Negative fluid balance and weight is down 4.5 mg from yesterday -continue IS, acapella Normocytic anemia -mild at 10.7 -may have appeared more significant given fluid positive status -holding steady DC planning -likely will need to re-assess ambulatory oximetry tomorrow 07/18/2016-I reviewed this chart, the patient history, and the [facility] [employer] ARCHITECT's/PA's documented findings as above. We discussed and formulated the assessment and plan as above with the additions below.-Dr. Suarez Patient states that she is feeling okay today. She denies shortness of breath at rest or with ambulation. She is off of oxygen during the day at rest. She did require oxygen last night. Oxygen saturations dropped to 84% on room air with activity. She still has 2+ lower extremity edema. Chest is clear to auscultation. Cardiovascular reveals a regular rate and rhythm. Abdomen is soft and nontender. Acute hypoxic respiratory failure is likely secondary to combination of fluid overload and atelectasis. Continue diuresis. Continue aggressive use of incentive spirometer. Probable discharge tomorrow, hopefully will not need oxygen. Discussed with patient, her son, and her nurse.
--- NOTE | 2016-07-19 14:12 | Discharge Summary ---
Hospital Course Hospital course: 07/17/2016-I reviewed this chart, the patient history, and the SEWING ROOM SUPERVISOR's/PA's documented findings as above. We discussed and formulated the assessment and plan as above with the additions below.-Dr. Suarez I saw the patient this afternoon accompanied by her son. She denies feeling short of breath. She denies any chest pains or palpitations. She denies any lightheadedness. She has been eating and drinking well. She had a normal large bowel movement today. She denies any difficulty urinating. She was seen earlier today by my nurse practitioner and there was concern for fluid overload causing some of her hypoxia. Chest x-ray on 07/14/2016 shows lower lobe atelectasis. Chest x-ray today shows questionable atelectasis as well as some fluid in the fissure. She was given IV Lasix earlier today and has urinated large amounts multiple times since then. On exam she is alert and oriented 3 and in no acute distress. HEENT reveals sclerae to be anicteric and oropharynx is moist. Neck is supple. There is no JVD. Chest is clear to auscultation without wheezes or rhonchi. There is decreased breath sounds in the bases. Cardiovascular reveals a regular rate and rhythm without murmur. Abdomen is soft with positive bowel sounds. Extremities reveal 1-2+ edema in the pretibial area and +1 edema in the feet. Patient is uncertain if her edema is worse than normal. Weight is up approximately 8 kg since admission Her hypoxia has been fairly constant during this hospitalization postoperatively. Is likely accommodation of atelectasis and fluid overload. Agree with diuresis. We'll check a basic metabolic profile now and consider another dose of IV Lasix later today. The patient was encouraged to continue incentive spirometer 07/18/16 15:35 Postop hypoxia -ambulatory oximetry at 1020 this am showed sats dropping to 85%; at this time 1L of oxygen was recommended; repeated this afternoon with sats dropping to 84% during ambulation and then recovering to >90% after 1 minute of rest -nocturnal oximetry reviewed - she stayed >90% according to documentation -s/p diuresis with IV Lasix -Negative fluid balance and weight is down 4.5 mg from yesterday -continue IS, acapella Normocytic anemia -mild at 10.7 -may have appeared more significant given fluid positive status -holding steady DC planning -likely will need to re-assess ambulatory oximetry tomorrow 07/18/2016-I reviewed this chart, the patient history, and the SEWING ROOM SUPERVISOR's/PA's documented findings as above. We discussed and formulated the assessment and plan as above with the additions below.-Dr. Suarez Patient states that she is feeling okay today. She denies shortness of breath at rest or with ambulation. She is off of oxygen during the day at rest. She did require oxygen last night. Oxygen saturations dropped to 84% on room air with activity. She still has 2+ lower extremity edema. Chest is clear to auscultation. Cardiovascular reveals a regular rate and rhythm. Abdomen is soft and nontender. Acute hypoxic respiratory failure is likely secondary to combination of fluid overload and atelectasis. Continue diuresis. Continue aggressive use of incentive spirometer. Probable discharge tomorrow, hopefully will not need oxygen. Discussed with patient, her son, and her nurse. Discharge Plan - Med Rec/Dispo Referrals/Follow Up: Cesar Rae MD [Family Provider] - 07/27/16 10:30 am () Jimmy Macias MD [Physician] - (July 27 at 10:15 am with Remy Castañeda APRN ) [facility] Instructions: Laparoscopic Appendectomy (DC) Prescriptions: New Hydrocodone/APAP 5/325 [[place] 5/325] 1 - 2 tab PO Q5H PRN #30 PRN Reason: Pain PEG 3350 17gm PACKET [Miralax] 17 gm PO DAILY PRN 14 Days PRN Reason: Constipation Continue Atenolol 50 mg PO BID #0 Ecotrin 81 mg PO DAILY Metformin HCl 500 mg PO WS Combigan Eye Drops 1 drop EACH EYE BID hydroCHLOROthiazide [Hydrochlorothiazide] 25 mg PO HS #0 Lisinopril [Prinivil] 20 mg PO HS - Disposition 01 Discharged Home, Self-Care
--- NOTE | 2016-07-19 15:06 | Progress Note ---
DATE 07/19/2016 FINDINGS Jessica states she is feeling significantly better. She states that the nursing staff did walk her today and that she was not nearly as short of breath. She states that her O2 sat did drop to 88% but quickly returned to above 90. She denies any shortness of breath. VITALS: Afebrile. Normotensive. It does appear that her O2 sat has been around 94-97% on room air. ABDOMEN: Soft. Minimal tenderness. ASSESSMENT Status post laparoscopic appendectomy secondary to ruptured appendicitis. Patient doing quite well. Development of postoperative hypoxia that has responded to diuresis. PLAN At this point time I do believe we could likely discharge the patient to home. I do not feel that she needs additional oral antibiotics given the fact that she has been on intravenous antibiotics over the course of the last week. Drain has been discontinued at this time. Did discuss case with hospitalist this morning who did not feel that she would likely qualify for home O2 at this juncture in time secondary to improvement of her hypoxia. Will plan on seeing the patient in office in roughly a week or two in followup or sooner if problem should arise. ZAKI
--- NOTE | 2016-07-19 15:19 | Discharge Summary ---
Discharge Information Date of admission: 07/13/16 21:50 Attending Physician: Jimmy Macias MD Primary care physician: Cesar Rae MD Consults: 07/17/16 11:56 Physician Consult [CONS] Routine Consulting Provider: Suyapa Suarez Reason For Exam: HYPOXIA Ordering Provider has Notified Metal Treater: Yes - Discharge Diagnosis (1) Acute appendicitis with rupture Status: Resolved (2) Postoperative hypoxia Status: Resolved (3) Hypertension Qualifiers: Hypertension type: essential hypertension Qualified Code(s): I10 - Essential (primary) hypertension Status: Chronic (4) Diabetes mellitus type 2 in obese Status: Chronic - Procedures Procedures: 07-13-2016 Laparoscopic appendectomy - Laboratory Labs: 07/19/16 05:02 07/19/16 05:02 Laboratory Tests 07/13/16 07/14/16 07/15/16 11:13 05:18 07:58 WBC 8.0 10.3 9.0 07/16/16 07/18/16 07/19/16 04:37 04:13 05:02 WBC 8.2 10.0 10.6 - Radiology Radiology: 07-13-2016 CT abdomen peelvis Impression: 1. Acute appendicitis with evidence of perforation. Emergent surgical consultation is recommended. 2. Hepatic steatosis. 07-14-2016 CXR Findings: Interval development of bibasilar atelectasis with volume loss in the right middle lobe. Hypoinflation. No pneumothorax. Cardiac silhouette is mildly enlarged. Pulmonary vascularity appears normal. Mediastinal contours are stable allowing for the hypoinflation. Impression: Bilateral lower lobe atelectasis. - Pathology Acute ruptured appendix History of Present Illness HPI: 07-13-2016 FINDINGS Mrs. Montoya is a 70-year-old female I was asked to see today through the emergency room as a result of the patient's history and physical findings of abdominal pain in conjunction with an obtained abnormal CT scan. Upon questioning the patient she informs me that she has been experiencing pain now about the last 6 days. Pain has been located within her right lower quadrant. She has had a component of some fever and chills in association with the pain. Pain is made worse with movement or upon palpation. Pain has become progressively worse to the point that she "cannot now get comfortable." Patient states that she is now having pain whether she "moves are not." The patient did present earlier today to her primary care physician who appropriately sent her to the ER for further evaluation. The patient was sitting somewhat upright in bed and leaning towards her right side. She did appear to be uncomfortable but did not appear to be in acute distress. Hospital Course Hospital course: 07-13-2013 ASSESSMENT 70-year-old female with acute appendicitis. PLAN Laparoscopic appendectomy, possible open. I informed the patient that her clinical history, physical findings and radiographic findings are all indicative for appendicitis. I therefore recommend proceeding with surgical intervention. I informed the patient that I felt that she was at a higher risk for conversion to open procedure given the duration of her pain over the last 6- [address] scan there does appear to be a significant amount of pericecal inflammatory changes present suggestive of a phlegmonous-like process involving the pericecal region. I did discuss with the patient and the family member who was present what a laparoscopic appendectomy, possible open entails and its associated risk which include, but are not limited to, bleeding and/or infection. I have recommended the patient receive broad-spectrum antibiotics while in emergency room. She did receive Invanz 1 g IV. Will go ahead and continue with IV fluids and place the patient on the surgical floor. Later this afternoon, will proceed with surgical intervention as above. I do not feel that this is an "emergent" situation for the does not have toshia peritonitis and is hemodynamically stable at this time. Nonetheless, we will proceed in a timely fashion later this afternoon with surgical intervention. 07-14-2016 She was transferred to CCU post op for close observation and changed to inpatient status due to need for IV antibiotics, close monitoring for sepsis, some cardiac ectopy during surgery, PACs. 07/17/2016-I reviewed this chart, the patient history, and the PERSONAL CARE AIDE's/PA's documented findings as above. We discussed and formulated the assessment and plan as above with the additions below.-Dr. Suarez I saw the patient this afternoon accompanied by her son. She denies feeling short of breath. She denies any chest pains or palpitations. She denies any lightheadedness. She has been eating and drinking well. She had a normal large bowel movement today. She denies any difficulty urinating. She was seen earlier today by my nurse practitioner and there was concern for fluid overload causing some of her hypoxia. Chest x-ray on 07/14/2016 shows lower lobe atelectasis. Chest x-ray today shows questionable atelectasis as well as some fluid in the fissure. She was given IV Lasix earlier today and has urinated large amounts multiple times since then. On exam she is alert and oriented 3 and in no acute distress. HEENT reveals sclerae to be anicteric and oropharynx is moist. Neck is supple. There is no JVD. Chest is clear to auscultation without wheezes or rhonchi. There is decreased breath sounds in the bases. Cardiovascular reveals a regular rate and rhythm without murmur. Abdomen is soft with positive bowel sounds. Extremities reveal 1-2+ edema in the pretibial area and +1 edema in the feet. Patient is uncertain if her edema is worse than normal. Weight is up approximately 8 kg since admission Her hypoxia has been fairly constant during this hospitalization postoperatively. Is likely accommodation of atelectasis and fluid overload. Agree with diuresis. We'll check a basic metabolic profile now and consider another dose of IV Lasix later today. The patient was encouraged to continue incentive spirometer 07/18/16 15:35 Postop hypoxia -ambulatory oximetry at 1020 this am showed sats dropping to 85%; at this time 1L of oxygen was recommended; repeated this afternoon with sats dropping to 84% during ambulation and then recovering to >90% after 1 minute of rest -nocturnal oximetry reviewed - she stayed >90% according to documentation -s/p diuresis with IV Lasix -Negative fluid balance and weight is down 4.5 mg from yesterday -continue IS, acapella Normocytic anemia -mild at 10.7 -may have appeared more significant given fluid positive status -holding steady DC planning -likely will need to re-assess ambulatory oximetry tomorrow 07/18/2016-I reviewed this chart, the patient history, and the PERSONAL CARE AIDE's/PA's documented findings as above. We discussed and formulated the assessment and plan as above with the additions below.-Dr. Suarez Patient states that she is feeling okay today. She denies shortness of breath at rest or with ambulation. She is off of oxygen during the day at rest. She did require oxygen last night. Oxygen saturations dropped to 84% on room air with activity. She still has 2+ lower extremity edema. Chest is clear to auscultation. Cardiovascular reveals a regular rate and rhythm. Abdomen is soft and nontender. Acute hypoxic respiratory failure is likely secondary to combination of fluid overload and atelectasis. Continue diuresis. Continue aggressive use of incentive spirometer. Probable discharge tomorrow, hopefully will not need oxygen. Discussed with patient, her son, and her nurse. \\07-19-2016 DC to home, with follow up in Dr. Macias's office July 27 at 10:15 am. Rx for [place]. No additional antibiotics needed, since she had a week of IV antibiotic. DVT Prophylaxis: SCD's, Lovenox GI Prophylaxis: Protonix Discharge Plan - Med Rec/Dispo Referrals/Follow Up: Cesar Rae MD [Family Provider] - 07/27/16 10:30 am () Jimmy Macias MD [Physician] - (July 27 at 10:15 am with Remy Castañeda APRN ) [facility] Instructions: Laparoscopic Appendectomy (DC) Prescriptions: New Hydrocodone/APAP 5/325 [[place] 5/325] 1 - 2 tab PO Q5H PRN #30 PRN Reason: Pain PEG 3350 17gm PACKET [Miralax] 17 gm PO DAILY PRN 14 Days PRN Reason: Constipation Continue Atenolol 50 mg PO BID #0 Ecotrin 81 mg PO DAILY Metformin HCl 500 mg PO WS Combigan Eye Drops 1 drop EACH EYE BID hydroCHLOROthiazide [Hydrochlorothiazide] 25 mg PO HS #0 Lisinopril [Prinivil] 20 mg PO HS - Disposition 01 Discharged Home, Self-Care
== END 2016-07-19 14:03 | disposition home or self-care (01) | DRG 342 ==
LOC: ED 10:34 → SUR 13:57 → SRG 14:00 → CCU 17:49 → SRG 07-15 09:38
PROVIDERS: ADMIT Surgery; ATTEND Surgery